=== PATIENT | female | born 1940 | race Caucasian/White ===

== ENCOUNTER 2016-10-17 05:39 | Outpatient (CLI) | payer MEDICARE ==
[~2016-10-17] VITALS: Ht 167.6 cm; Wt 68.5 kg
--- OUTSIDE RECORDS SUMMARY | 2016-10-17 05:45 | XMS REPORT | Continuity of Care Document ---
Author Author [facility] Organization [facility] Address Unknown Phone Unavailable Care Team Providers Care Home Care Giver Name Role Phone Jayna Grigsby PCP [phone] Source Comments Some departments are not documenting in the electronic medical record. If you do not see the information that you expected, contact Release of Information in the Health Information Management department at [phone] for further assistance in locating additional records.[facility] Active Allergies and Adverse Reactions Allergen Noted Date Severity Reactions Comments Sulfa (Sulfonamide 02/27/2012 RASH Antibiotics) Current Medications Prescription Sig. Disp. Refills Start End Date Status Date metFORMIN (GLUCOPHAGE) Take 250 mg by mouth Active 500 mg tablet twice daily with meals. pantoprazole DR Take 40 mg by mouth Active (PROTONIX) 40 mg tablet daily. solifenacin(+) (VESICARE) Take 5 mg by mouth daily. Active 5 mg tablet fenofibrate Take 145 mg by mouth Active nanocrystallized (TRICOR) daily. 145 mg tablet verapamil SR (VERELAN) Take 240 mg by mouth at Active 240 mg C24P bedtime daily. digoxin (LANOXIN) 125 mcg Take 0.125 mg by mouth Active tablet daily. warfarin (COUMADIN) 1 mg Take 1 mg by mouth daily. Active tablet simvastatin (ZOCOR) 40 mg Take 20 mg by mouth at Active tablet bedtime daily. aspirin EC 81 mg tablet Take 81 mg by mouth Active daily. acetaminophen (TYLENOL) Take 500 mg by mouth Active 500 mg tablet every 6 hours as needed. metoprolol (LOPRESSOR) 25 Take 25 mg by mouth twice Active mg tablet daily. cromolyn (NASOCHROM) 5.2 Apply 1 [place] to each Active mg/spray (4 %) nasal nostril as directed every spray 6 hours as needed. calcium carbonate (TUMS) Take 500-1,000 mg by Active 500 mg (200 mg elemental mouth daily. calcium) chewable tablet bacitracin 500 unit/g Apply small amount to 1 Container 0 03/31/20 Active topical ointment nose, cheek, and ear 12 incision twice daily. Active Problems Problem Noted Date Basal cell carcinoma of nose 03/12/2012 Social History Tobacco Use Types Packs/Day Years Used Date Never Smoker Smokeless Tobacco: Never Used Alcohol Use Drinks/Week oz/Week Comments No Last Filed Vital Signs Vital Sign Reading Time Taken Blood Pressure 192/77 04/23/2012 3:04 PM CDT Pulse 61 04/23/2012 3:04 PM CDT Temperature 36.3 C (97.4 F) 03/31/2012 8:00 AM CDT Respiratory Rate - - Height 1.702 m (5' 7") 04/23/2012 3:04 PM CDT Weight 65.772 kg (145 lb) 04/23/2012 3:04 PM CDT Body Mass Index 22.71 04/23/2012 3:04 PM CDT Oxygen Saturation 96% 03/31/2012 8:00 AM CDT Plan of Care Health Maintenance Due Date Last Done Comments Physical (Comprehensive) 12/22/1947 Exam Pertussis Vaccine 12/22/1951 Tetanus Vaccine 1957 Breast Cancer Screening 1980 Colorectal Cancer 1990 Screening Shingles Vaccine 2000 Osteoporosis Screening 2005 Prevnar/Pneumovax (#1) 2005 Influenza Vaccine 04/04/2016 Results from Last 3 Months Not on file
[2016-10-17] MEDS ORDERED: PANT40TA3 PO (10:16)
[2016-10-17] MEDS ORDERED: WARF1TAB6 PO ×2 (10:16)
[2016-10-17] MEDS ORDERED: VERA240C2 PO (10:16)
[2016-10-17] MEDS ORDERED: SIMV40TA4 PO (10:16)
[2016-10-17] MEDS ORDERED: MIRA50TA PO (10:16)
[2016-10-17] MEDS ORDERED: ASPI-586 PO (10:16)
[2016-10-17] MEDS ORDERED: TIOT4MIS2 IH (10:16)
[2016-10-17] MEDS ORDERED: FEXO-46 PO (10:16)
[2016-10-17] MEDS ORDERED: FLUO10CA29 PO (10:16)
[2016-10-17] MEDS ORDERED: FENO145T20 PO (10:16)
[2016-10-17] MEDS ORDERED: LORA0.5T PO (10:16)
== END 2016-10-17 10:36 ==
LOC: PREOP 05:39
PROVIDERS: ATTEND Urology
DX: Z01.818 Encounter for other preprocedural examination (principal); N36.42 Intrinsic sphincter deficiency (ISD); R32 Unspecified urinary incontinence; N32.81 Overactive bladder; N81.10 Cystocele, unspecified

== ENCOUNTER 2016-10-22 06:10 | Day surgery (SDC) | payer MEDICARE ==
[~2016-10-22] VITALS: Ht 167.6 cm; Wt 68.5 kg
[~2016-10-22 06:10] MED LIST: ASPI-586 PO; FENO145T20 PO; FEXO-46 PO; FLUO10CA29 PO; LORA0.5T PO; MIRA50TA PO; PANT40TA3 PO; SIMV40TA4 PO; TIOT4MIS2 IH; VERA240C2 PO; WARF1TAB6 PO
--- OUTSIDE RECORDS SUMMARY | 2016-10-22 06:14 | XMS REPORT | Continuity of Care Document ---
Author Author [facility] Organization [facility] Address Unknown Phone Unavailable Care Team Providers Care Rn Support Services Name Role Phone Jayna Grigsby PCP [phone] Source Comments Some departments are not documenting in the electronic medical record. If you do not see the information that you expected, contact Release of Information in the Health Information Management department at [phone] for further assistance in locating additional records.[facility] Active Allergies and Adverse Reactions Allergen Noted [...] tablet daily. cromolyn (NASOCHROM) 5.2 Apply 1 [place] to each Active mg/spray (4 %) nasal [...]
--- OUTSIDE RECORDS SUMMARY | 2016-10-22 06:15 | XMS REPORT | Continuity of Care Document ---
Author Author [facility] Organization [facility] Address Unknown Phone Unavailable Care Team Providers Care Breast Trimmer Name Role Phone Jayna Grigsby PCP [phone] Source Comments Some departments are not documenting in the electronic medical record. If you do not see the information that you expected, contact Release of Information in the Health Information Management department at [phone] for further assistance in locating additional records.[facility] Active Allergies and Adverse Reactions Allergen [...] tablet daily. cromolyn (NASOCHROM) 5.2 Apply 1 [place] to each Active mg/spray (4 %) nasal [...]
[2016-10-22] MEDS ORDERED: LEVOFLOXACIN 250 MG/50 ML IVPB 50 ML ONE (06:17)
[2016-10-22] MEDS: LACTATED RINGERS 1,000 ML IV PRN ×2 (06:40→13:31)
[2016-10-22 07:00] LABS: INR 1.1 (0.8-1.4); PROTHROMBIN TIME PATIENT 14.2 SEC (12.2-14.7)
[2016-10-22] MEDS ORDERED: HYDROcodone/APAP 10 MG/325 MG (LORTAB) TAB PO PRN (07:00)
[2016-10-22] MEDS ORDERED: CATHETER FLUSH 10 ML SYR IV PRN (07:00)
[2016-10-22] MEDS ORDERED: LACTATED RINGERS 1,000 ML IV SCH (07:00)
[2016-10-22] MEDS ORDERED: LEVOFLOXACIN 250 MG/D5W 50 ML (PRE-MIX) IV ONE (07:00)
--- NOTE | 2016-10-22 07:00 | Progress Note-Post Operative ---
Post-Operative Progess Note Pre-Operative Diagnosis CYSTOCELE, INCONTINENCE, OAB, AND ISD Post-Operative Diagnosis SAME Post-Op Procedure Note Date of Procedure: Oct 22, 2016 Name of Procedure: ANTERIOR REPAIR, PVS, AND CYSOSCOPY Anesthesia Type GENERAL Packing: VAGINAL ANEUDY DEL RIO MD Oct 22, 2016 7:00 am
--- NOTE | 2016-10-22 07:00 | Progress Note-Pre Operative ---
Pre-Operative Progress Note H&P Reviewed The H&P was reviewed, patient examined and no changes noted. Date H&P Reviewed: Oct 22, 2016 Time H&P Reviewed: 06:59 Pre-Operative Diagnosis: CYSTOCELE, INCONTINENCE, OAB, AND ISD ANEUDY DEL RIO MD Oct 22, 2016 6:59 am
[2016-10-22] MEDS ORDERED: SEVOFLURANE (ULTANE) 15 ML INHAL SOLN ONE ×4 (07:15→08:33)
[2016-10-22] MEDS ORDERED: fentaNYL INJECTION 100 MCG/2 ML AMP ONE (07:15)
[2016-10-22] MEDS ORDERED: LACTATED RINGERS 1,000 ML IV ONE (07:15)
[2016-10-22] MEDS ORDERED: proPOfol 200 MG/20 ML (DIPRIVAN) VIAL IV ONE (07:15)
[2016-10-22] MEDS ORDERED: ONDANSETRON 4 MG/2 ML (SDV) Z0FRAN ONE ×2 (07:15→15:32)
[2016-10-22] MEDS ORDERED: LIDOCAINE PF 2% 10 ML (XYLOCAINE) AMP ONE (07:15)
[2016-10-22] MEDS ORDERED: LIDOCAINE/EPI 1%-1:100,000 (XYLOCAINE) 20ML ONE (07:18)
[2016-10-22 07:21] VITALS: BP 163/77
[2016-10-22] MEDS ORDERED: ESTRADIOL VAGINAL CREAM 42.5 GM (ESTRACE) VG ONE (07:40)
[2016-10-22 10:00] VITALS: BP 123/79
--- NOTE | 2016-10-22 10:00 | OPERATIVE REPORT ---
PROCEDURE PHYSICIAN: ANEUDY DEL RIO DATE OF PROCEDURE: 10/22/2016 PREOPERATIVE DIAGNOSIS: Large cystocele with urinary incontinence, overactive bladder, ISD. POSTOPERATIVE DIAGNOSIS: Large cystocele with urinary incontinence. overactive bladder, ISD. OPERATION PERFORMED: 1. Anterior repair. 2. Pubovaginal sling and cystoscopy. SURGEON: Chandrika. ANESTHESIA: General. COMPLICATIONS: None. PROCEDURE: Under satisfactory general anesthesia, the patient in extended lithotomy position the genitalia were prepped and draped in the usual sterile fashion. Frost catheter was inserted and the bladder was drained. The anterior vaginal wall was infiltrated with lidocaine and epinephrine. A midline incision was made just a centimeter proximal to the urethral meatus carried all the way to the base of the bladder. The bladder was found to be very thin and large. It was safely and carefully dissected off the vaginal mucosa to identify the fascia. Dissection was carried all around as well as to the pubic arch. The repair was performed by approximating the fascia with interrupted 2-0 Vicryl supporting the bladder, very well, and pushing it in. Then I passed the Solyx pubovaginal sling device on both sides, using the described technique. The sling was sitting nicely under the mid urethra with no twisting, tension and passage of a curved hemostat easily between it and the underlying tissue. I removed the Frost catheter, inserted the cystoscope to confirm the integrity of the bladder, ureteral orifices and no foreign body and the presence of the sling under the mid urethra. I left the bladder half full. I removed the cystoscope, performed a manual Valsalva maneuver that was negative. I reinserted the Frost catheter excised the excess vaginal mucosa and reapproximated the vaginal mucosa with a running 2-0 Rapide. Before doing so it was noted that there was some oozing coming from the very top corner on the left side. No visible bleeding, to control so I went ahead and put some Surgicel and some pressure and it fairly reduced the oozing. I went ahead and put a Premarin vaginal pack. The urine remained clear throughout the procedure. The patient tolerated the procedure and anesthesia well and was sent to recovery room in stable condition. Estimated blood loss 50 mL, none of which was replaced. Job ID: [id number] Dictated Date: 10/22/2016 08:47:32 Electric Transfer Operator Date: 10/22/2016 09:52:52 / bro
[2016-10-22] MEDS ORDERED: ONDANSETRON 4 MG/2 ML (SDV) Z0FRAN IVP PRN (15:30)
[2016-10-22] MEDS: APAP 300 MG/CODEINE 30 MG (TYLENOL #3) TAB PO PRN ×2 (15:36→20:40)
[2016-10-22 15:57] VITALS: BP 146/77
[2016-10-22] MEDS ORDERED: PATIENT MAY USE OWN MEDS, ALL MC SCH (18:00)
[2016-10-22 19:55] VITALS: BP 159/73
[2016-10-22] MEDS: LORazepam 0.5 MG (ATIVAN) TABLET PO SCH (20:43)
[2016-10-23 00:40] VITALS: BP 134/70
[2016-10-23] MEDS: APAP 300 MG/CODEINE 30 MG (TYLENOL #3) TAB PO PRN ×2 (00:50→10:02)
[2016-10-23 05:00] VITALS: BP 124/70
--- NOTE | 2016-10-23 06:28 | Progress Note-Urology ---
Progress Note-Urology Progress Notes/Assess & Plan Progress/Assessment & Plan AFEBRILE, VSS, NO COMPLAINTS, DC RODRIGUEZ IV, AND VAG PACK Final Diagnosis CYSTOCELE, INCONTINENCE, OAB, AND ISD ANEUDY DEL RIO MD Oct 23, 2016 6:28 am
[2016-10-23] MEDS ORDERED: LEVOFLOXACIN 250 MG/50 ML IVPB 50 ML IV SCH (07:00)
[2016-10-23 08:30] VITALS: BP 141/77
[2016-10-23] MEDS: LORazepam 0.5 MG (ATIVAN) TABLET PO SCH (08:59)
[2016-10-23] MEDS ORDERED: CIPR-225 PO (10:30)
== END 2016-10-23 11:55 | disposition home or self-care (01) ==
LOC: DELPENDDIS → SDC 06:10 → WS 10:01 → 3RD 12:42 → WS 12:42 → SDC 10-23 11:55
PROVIDERS: ATTEND Urology
DX: N81.10 Cystocele, unspecified (principal); N36.42 Intrinsic sphincter deficiency (ISD); R32 Unspecified urinary incontinence; N32.81 Overactive bladder
CPT/HCPCS: 36415; 85610; 87081; 94664; 96375